=== PATIENT | female | born 1990 | race Caucasian/White ===

== ENCOUNTER 2017-04-05 12:37 | Emergency (ER) | payer SELFPAY ==
[~2017-04-05] VITALS: Ht 165.1 cm; Wt 61.2 kg
[2017-04-05] MEDS ORDERED: ROBAXIN-750750 MG PO (13:09)
[2017-04-05] MEDS ORDERED: NAPROXEN500 M1 ORAL (13:09)
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
[2017-04-05] MEDS ORDERED: Ketorolac 30mg Inj IM ONE (13:15)
[2017-04-05 13:25] VITALS: BP 122/84
== END 2017-04-05 13:25 | disposition home or self-care (01) ==
LOC: EMR 13:15
DX: M62.838 Other muscle spasm (principal); V43.52XA Car driver injured in collision with other type car in traffic accident, initial encounter; Y92.410 Unspecified street and highway as the place of occurrence of the external cause
CPT/HCPCS: 99284; J1885

== ENCOUNTER 2017-06-01 01:09 | Emergency (ER) | payer SELFPAY ==
[~2017-06-01] VITALS: Ht 167.6 cm; Wt 68.0 kg
[~2017-06-01 01:09] MED LIST: NAPROXEN500 M1 ORAL; ROBAXIN-750750 MG PO
[2017-06-01 01:17] VITALS: BP 135/85
[2017-06-01] MEDS ORDERED: NKM (01:17)
[2017-06-01] MEDS ORDERED: HYDROCODON-ACE1 EA15 ORAL (01:32)
[2017-06-01] MEDS ORDERED: IBUPROFEN600 MG ORAL (01:32)
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
[2017-06-01] MEDS: Norco 5mg/325mg tab ORAL ONE (01:48)
[2017-06-01 01:58] VITALS: BP 121/74
--- NOTE | 2017-06-01 09:49 | Diagnostic Imaging Report ---
Indications: Trauma Technique: Four views of the cervical spine Comparison: None Findings: There is straightening of the normal cervical lordosis. Otherwise normal bony alignment. No prevertebral soft tissue swelling. No acute fractures. No dislocations. Vertebral body heights and disc spaces are preserved. The neural foramina are preserved Impression: Negative
== END 2017-06-01 01:58 | disposition home or self-care (01) ==
LOC: EMR 01:20
DX: S16.1XXA Strain of muscle, fascia and tendon at neck level, initial encounter (principal); V43.52XA Car driver injured in collision with other type car in traffic accident, initial encounter; Y92.414 Local residential or business street as the place of occurrence of the external cause
CPT/HCPCS: 72052; 99283